=== PATIENT | female | born 1990 | race Caucasian/White ===

== ENCOUNTER 2023-09-07 14:07 | Outpatient (CLI) | payer OTHER, SELFPAY ==
[2023-09-07 20:43] LABS: Chlamydia DNA Amplified* NOT DETECTED (No Detected); GC DNA Amplified* NOT DETECTED (No Detected)
== END 2023-09-07 14:08 | disposition home or self-care (01) ==
PROVIDERS: Visit Provider Registered Nurse
DX: N93.9 Abnormal uterine and vaginal bleeding, unspecified (principal); E78.5 Hyperlipidemia, unspecified; Z12.4 Encounter for screening for malignant neoplasm of cervix; Z34.90 Encounter for supervision of normal pregnancy, unspecified, unspecified trimester
CPT/HCPCS: 82947; 83498; 84146; 84270; 84402; 84403; 84443; 87491; 87591

== ENCOUNTER 2023-12-14 08:16 | Outpatient (CLI) | payer OTHER, SELFPAY ==
--- NOTE | 2023-12-14 08:15 | US_ITS ---
INDICATION: ABNORMAL UTERINE BLEEDING. TECHNIQUE: TRANSABDOMINAL AND TRANSVAGINAL PELVIC ULTRASOUND PERFORMED WITH GRAYSCALE AND COLOR DOPPLER TECHNIQUE. COMPARISON: NONE. FINDINGS: THE UTERUS MEASURES 7.7 X 3.3 X 3.9 CM. NO UTERINE FIBROID. THE ENDOMETRIUM IS DIFFUSELY THICKENED AND HETEROGENEOUS MEASURING 1.3 CM. NO ENDOMETRIAL FLUID. THE RIGHT OVARY MEASURES 3.0 X 1.8 X 2.3 CM AND THE LEFT OVARY MEASURES 3.3 X 2.3 X 2.2 CM. NORMAL BLOOD FLOW TO BOTH OVARIES. THERE IS A DOMINANT FOLLICLE LEFT OVARY MEASURING 1.8 CM. NO PELVIC FREE FLUID. THERE IS A HYPERECHOIC FOCUS ASSOCIATED WITH THE ENDOMETRIUM MEASURING 5 X 5 X 5 MM. IMPRESSION: DIFFUSELY THICKENED AND HETEROGENEOUS ENDOMETRIUM MEASURING 1.3 CM WITH POSSIBLE 5 MM POLYP.
== END 2023-12-14 08:17 | disposition home or self-care (01) ==
LOC: US 08:16
PROVIDERS: Visit Provider Registered Nurse
DX: N93.9 Abnormal uterine and vaginal bleeding, unspecified (principal); R93.89 Abnormal findings on diagnostic imaging of other specified body structures
CPT/HCPCS: 76830; 76856

== ENCOUNTER 2024-10-15 16:34 | Outpatient (CLI) | payer OTHER, SELFPAY ==
--- NOTE | 2024-10-15 16:45 | CRLHL7_ITS ---
For Patients: As a result of the Century Cures Act, medical imaging exams and procedure reports are released immediately into your electronic medical record. You may view this report before your referring provider. If you have questions, please contact your health care provider. INDICATION: F/U possible polyp COMPARISON: 12/14/2023 TECHNIQUE: 2D escalera scale and color Doppler images were acquired of the pelvis using a transabdominal and transvaginal approach. FINDINGS: Sonographic images demonstrate a normal size and smooth outer contour of the uterus. Uterus measures 7.5 cm in length by 3.3 cm in AP diameter by 4.1 cm in transverse dimension. The myometrium has a normal uniform echotexture. The endometrial lining measures 12 mm in composite thickness. The right ovary measures 2.9 x 1.6 x 1.8 cm in size and the left ovary measures 2.9 x 2.2 x 2.0 cm. The ovaries demonstrate normal arterial and venous blood flow on color Doppler analysis. There are no suspicious fluid collections within the cul-de-sac. Simple left ovarian cyst measures 1.9 cm. IMPRESSION: Mildly heterogeneous endometrium measuring 1.2 cm. No endometrial fluid. No evidence of polyp on the current exam. Dictated by Ike Winters MD @ 10/16/2024 5:59:52 AM (Electronically Signed)
== END 2024-10-15 16:35 | disposition home or self-care (01) ==
PROVIDERS: Visit Provider Registered Nurse
DX: Z87.42 Personal history of other diseases of the female genital tract (principal); R93.89 Abnormal findings on diagnostic imaging of other specified body structures; N94.6 Dysmenorrhea, unspecified
CPT/HCPCS: 76830; 76856